=== PATIENT | female | born 1965 | race Caucasian/White ===

== ENCOUNTER 2018-07-18 17:44 | Emergency (ER) | payer MEDICAID ==
[~2018-07-18] VITALS: Ht 152.4 cm; Wt 63.5 kg
[2018-07-18 18:19] VITALS: Ht 152.4 cm; Wt 63.5 kg
[2018-07-18 21:18] VITALS: BP 184/100
== END 2018-07-18 21:18 | disposition home or self-care (01) ==
LOC: ED 17:44
DX: M94.0 Chondrocostal junction syndrome [Tietze] (principal)
CPT/HCPCS: J1885

== ENCOUNTER 2018-09-06 11:15 | Emergency (ER) | payer MEDICAID ==
[~2018-09-06] VITALS: Ht 152.4 cm; Wt 62.1 kg
[2018-09-06 11:25] VITALS: Ht 152.4 cm; Wt 62.1 kg
[2018-09-06 13:25] VITALS: BP 132/90
== END 2018-09-06 13:25 | disposition home or self-care (01) ==
LOC: ED 11:15
DX: R42 Dizziness and giddiness (principal); R11.2 Nausea with vomiting, unspecified; H93.12 Tinnitus, left ear; I10 Essential (primary) hypertension; Z90.89 Acquired absence of other organs
CPT/HCPCS: 82962; J8597; Q0162